=== PATIENT | male | born 1985 | race Caucasian/White ===

== ENCOUNTER 2018-10-12 14:12 | Emergency (ER) | payer MEDICAID ==
[~2018-10-12] VITALS: Ht 177.8 cm; Wt 71.0 kg
[2018-10-12] MEDS ORDERED: IPRATROPIUM BROMIDE (0.02%) 0.5MG/2.5ML NEB HHN STA (14:30)
[2018-10-12] MEDS ORDERED: ALBUTEROL (0.083%) 2.5MG/3ML NEB HHN STA (14:30)
[2018-10-12] MEDS ORDERED: METHYLPREDNISOLONE SOD SUCC 125 MG/2 ML VIAL IV STA (14:30)
[2018-10-12 15:01] LABS: BASOPHILS % 0.4 % (0.0-2.0); HEMATOCRIT. 43.2 % (42.0-52.0); HEMOGLOBIN. 14.5 g/dL (14.0-18.0); LYMPHOCYTES % 17.7 % (20.0-50.0); MEAN CORPUSCULAR HEMOGLOBIN 29.8 pg (28.0-32.0); MEAN PLATELET VOLUME 9.4 fl (7.4-10.4); MONOCYTES % 5.2 % (2.0-8.0); NEUTROPHILS % 72.7 % (40.0-76.0); PLATELET 219 x1000/uL (130-400); RED BLOOD CELL COUNT 4.85 mill/uL (4.7-6.1); RED CELL DISTRIBUTION WIDTH 13.1 % (11.6-14.6)
[2018-10-12 15:07] LABS: CHLORIDE 107 mEq/L (98-107)
[2018-10-12 16:12] VITALS: BP 143/70
== END 2018-10-12 16:33 | disposition home or self-care (01) ==
LOC: ER 14:29
DX: J45.901 Unspecified asthma with (acute) exacerbation (principal); F17.200 Nicotine dependence, unspecified, uncomplicated
CPT/HCPCS: 36415; 71045; 80053; 85025; 94644; 96374; 99285; 99406; J2930; J7611

== ENCOUNTER 2019-09-18 09:52 | Emergency (ER) | payer MEDICAID ==
[~2019-09-18] VITALS: Ht 172.7 cm; Wt 75.0 kg
[2019-09-18] MEDS ORDERED: PREDNISONE 20MG TABLET PO STA (11:08)
[2019-09-18] MEDS ORDERED: IPRATROPIUM BROMIDE (0.02%) 0.5MG/2.5ML NEB HHN STA (11:08)
[2019-09-18] MEDS ORDERED: ALBUTEROL (0.083%) 2.5MG/3ML NEB HHN STA (11:08)
[2019-09-18 14:00] VITALS: BP 112/68
== END 2019-09-18 14:00 | disposition home or self-care (01) ==
LOC: ER 09:52
DX: J45.901 Unspecified asthma with (acute) exacerbation (principal); R03.0 Elevated blood-pressure reading, without diagnosis of hypertension
CPT/HCPCS: 71045; 87804; 94644; 99285; J7512; J7610; Z7610